=== PATIENT | male | born 1990 | race Caucasian/White ===

== ENCOUNTER 2025-10-03 02:47 | Emergency (ER) | payer SELFPAY ==
[2025-10-03 03:09] LABS: BASOPHILS ABSOLUTE AUTO 0.03 K/uL (0.00-0.20); BASOPHILS PERCENT AUTO 0.3 % (0.0-1.0); EOSINOPHILS ABSOLUTE AUTO 0.15 K/uL (0.00-0.45); EOSINOPHILS PERCENT AUTO 1.7 % (0.0-6.0); IMMATURE GRAN ABSOLUTE AUTO 0.01 K/uL (0.00-0.05); IMMATURE GRAN PERCENT AUTO 0.1 % (0.0-0.4); LYMPHOCYTES ABSOLUTE AUTO 3.49 K/uL (1.00-4.80); LYMPHOCYTES PERCENT AUTO 39.8 % (24.0-44.0); MEAN PLATELET VOLUME 10.3 fL (9.4-12.4); MONOCYTES ABSOLUTE AUTO 0.75 K/uL (0.00-0.80); MONOCYTES PERCENT AUTO 8.6 % (0.0-8.0); NEUTROPHILS ABSOLUTE AUTO 4.34 K/uL (1.80-7.70); NEUTROPHILS PERCENT AUTO 49.5 % (41.0-71.0); NRBC ABSOLUTE 0.00 K/uL (0.00-0.02); NRBC PERCENT 0.0 /100WBC (0.0-0.2); PLATELET COUNT,PLT 238 K/uL (150-400); RED BLOOD CELL COUNT 4.48 M/uL (4.52-5.90); WHITE BLOOD CELL COUNT,WBC 8.77 K/uL (3.9-11.3)
[2025-10-03] MEDS: Iopamidol 755 MG/ML 500 ML Multipack Bottle IVPUSH STA (03:25)
[2025-10-03 04:01] LABS: BLOOD UREA NITROGEN,BUN 15.0 mg/dL (7.0-18.0); CARBON DIOXIDE,CO2 26.5 mmol/L (21.0-32.0); CHLORIDE,CL 106.0 mmol/L (98-107); CREATININE 1.3 mg/dL (0.8-1.3); EST CRCL DRUG DOSING (CG) 76.0 mL/min; GLUCOSE RANDOM 101.0 mg/dL (74-106); POTASSIUM,K 4.1 mmol/L (3.5-5.1); SODIUM,NA 145.0 mmol/L (136-148)
[2025-10-03 04:02] LABS: ESTIMATED GFR 73.0 mL/min (>60)
== END 2025-10-03 04:21 | disposition home or self-care (01) ==
LOC: MW.ED 02:47
DX: L03.112 Cellulitis of left axilla (principal); M79.81 Nontraumatic hematoma of soft tissue
CPT/HCPCS: 36415; 73201; 80048; 85025; 99284; A9270; Q9967; 99283